=== PATIENT | female | born 1980 | race Caucasian/White ===

== ENCOUNTER 2016-06-20 20:17 | Inpatient (IN) | payer MEDICAID ==
[~2016-06-20] VITALS: Ht 152.4 cm; Wt 91.3 kg
[~2016-06-20 20:17] MED LIST: ACET500C5 PO; AZIT250T94 PO; CETI10CA PO; FERR325C PO; PREN1TAB17 PO
[2016-06-20 21:28] VITALS: BP 118/70; PULSE 83; RESP 18
--- NOTE | 2016-06-20 21:41 | TRIAGE ---
OB Triage Datetime Report Generated by CPN: 06/20/2016 21:41 Datetime: 06/20/2016 21:22 Membrane Status: Bulging Datetime: 06/20/2016 21:14 Stage of : OB Triage Labor Evaluation Monitor Mode: External Quality: Mild Pattern: Normal: <= 5 Contractions in 10 Minutes Resting Tone Mullen: Relaxed Heart Rate FHR Baseline Rate: 140 Monitor Mode: External US FHR Baseline Changes: No Baseline Change Variability: Moderate 6-25 bpm Accelerations: 15X15 Decelerations: None Category: Category I Vaginal Exam Dilatation (cms): 3.5 Effacement (%): 70 Station: -2 Exam By: Dr Wills Membrane Status: Bulging Amniotic Fluid Amount: None Vaginal Bleeding: None Cervix, Consistency: Soft Cervix, Position: Posterior Presentation 'A': Cephalic Datetime: 06/20/2016 20:15 Time of Arrival: 06/20/2016 20:12 EGA: 39.0 Arrived By: Ambulatory Arrived From: Home Chief Complaint: GRP3 W/ C/O IRREG UCS AND SROM? Movement: Present Contractions: Irregular Time Contractions Began: 06/20/2016 18:00 Contractions: q5-10 Rupture of Membranes: Unsure Vaginal Bleeding: None Vaginal Discharge: Present Recent Sexual Intercouse: Denies Abdominal Trauma: Not Applicable Patient Complaints: Cramping; Back Pain Initial Plan: EFM, SVE Datetime: 03/24/2016 23:58 EGA: 26.3 Fall Risk Assessment Fall Score: 0 Fall Risk Score Definition: No Risk: No action required
[2016-06-20] MEDS ORDERED: LACTATED RINGER'S 1,000 ML IV SCH (21:51)
[2016-06-20 21:54] LABS: ADD UMIC YES; URINE BILIRUBIN (Dip) NEGATIVE (NEGATIVE); URINE BLOOD (Dip) 1+ (NEGATIVE); URINE COLOR LT. YELLOW (YELLOW); URINE GLUCOSE (Dip) NEGATIVE (NEGATIVE); URINE KETONES (Dip) NEGATIVE (NEGATIVE); URINE LEUKOCYTE ESTERASE (Dip) NEGATIVE (NEGATIVE); URINE NITRITE (Dip) NEGATIVE (NEGATIVE); URINE TOTAL PROTEIN (Dip) TRACE (NEGATIVE); URINE UROBILINOGEN (Dip) 0.2 E.U./dL (0.1-1.0)
[2016-06-20] MEDS ORDERED: BUTORPHANOL 2 MG INJ IV PRN (22:00)
[2016-06-20] MEDS ORDERED: METHYLERGONOVINE 0.2 MG INJ IM PRN (22:00)
[2016-06-20] MEDS ORDERED: MISOPROSTOL 200 MCG TAB PR PRN (22:00)
[2016-06-20] MEDS ORDERED: OXYTOCIN 30 UNITS/LR 500 ML IV SCH ×2 (22:00)
[2016-06-20] MEDS ORDERED: CARBOPROST 250 MCG INJ IM PRN (22:00)
[2016-06-20] MEDS ORDERED: LIDOCAINE 1% (MPF) 30 ML INJ INJ PRN (22:00)
[2016-06-20] MEDS ORDERED: IBUPROFEN 600 MG TAB PO PRN (22:00)
[2016-06-20] MEDS ORDERED: AMPICILLIN 2 GM/NS (PMX) 100 ML IV ONE (22:00)
[2016-06-20] MEDS ORDERED: OXYTOCIN 30 UNITS/LR 500 ML IV PRN (22:00)
[2016-06-20 22:10] LABS: SQUAMOUS EPITHELIAL CELL,UR MODERATE; URINE RBCS 0-2 /HPF (0)
[2016-06-20] MEDS ORDERED: LACTATED RINGER'S 1,000 ML IV PRN (23:00)
[2016-06-20 23:17] LABS: BASOPHILS % 0.3 % (0.0-2.0); EOSINOPHILS # 0.1 10^3/ul (0.0-0.5); EOSINOPHILS % 1.6 % (0.0-7.0); HEMATOCRIT 30.5 % (37.0-47.0); HEMOGLOBIN 9.9 g/dl (12.0-16.0); LYMPHOCYTES # 2.2 10^3/ul (0.8-2.9); LYMPHOCYTES % 24.2 % (15.0-51.0); MEAN CORPUSCULAR HEMOGLOBIN 25.8 pg (29.0-33.0); MEAN CORPUSCULAR HGB CONC 32.4 g/dl (32.0-37.0); MEAN CORPUSCULAR VOLUME 79.8 fl (82.0-101.0); MEAN PLATELET VOLUME 10.1 fl (7.4-10.4); MONOCYTE # 0.6 10^3/ul (0.3-0.9); MONOCYTES % 6.1 % (0.0-11.0); NEUTROPHIL # 6.3 10^3/ul (1.6-7.5); NEUTROPHILS % 67.8 % (39.0-77.0); PLATELET COUNT 242 10^3/UL (140-440); RED BLOOD COUNT 3.82 10^6/ul (4.20-5.40); UNCORRECTED WBC 9.3 10^3/ul (4.8-10.8); WHITE BLOOD COUNT 9.3 10^3/ul (4.8-10.8)
[2016-06-20 23:18] LABS: CONDITION 1; LH ANALYZER COMMENTS 1
[2016-06-20 23:26] LABS: INR 0.87; PROTIME 11.8 Sec (12.2-14.2); PT RATIO 0.9
--- NOTE | 2016-06-20 23:26 | HP ---
Date/Time of Note Date/Time of Note DATE: 06/20/16 TIME: 23:23 OB - History Hx of Present Chief Complaint: contractions Estimated Due Date: Jun 27, 2016 : 4 Para: 3 Spontaneous : 0 Therapeutic : 0 Care: Good Care Obstetrical Complications: None Medical Complications: None Past Family/Social History * Past Medical, Surgical, Family and Obstetric Histories reviewed from chart. GBS Status: Positive OB Admission Exam Vital Signs Vital Signs Vital Signs Date Time Temp Pulse Resp B/P Pulse Ox O2 Delivery O2 Flow Rate FiO2 06/20/16 21:28 98.3 83 18 118/70 Room Air Physical Exam HEENT: WNL Heart: Rhythm Normal Lungs: Clear Abdomen: WNL Extremities: Normal Reflexes: Normal Cervical Dilatation: 4cm Effacement: 75% Station: -1 Heart Rate: 140's Accelerations: Accelerations Present Varibility: Moderate Contractions on Admission: 6-10 Minutes Apart Last 72 hours Lab Results CBC & BMP 06/20/16 22:45 OB Assessment/Plan Reason for admission: active labor, group B positive strep Plan: Expectant Management LEONARDA GRAHAM MD Jun 20, 2016 23:26
[2016-06-20 23:27] LABS: PARTIAL THROMBOPLASTIN TIME 27.5 Sec (25.0-35.0)
[2016-06-21] MEDS ORDERED: AMPICILLIN 1 GM/NS (PMX) 50 ML IV SCH (02:00)
[2016-06-21] MEDS ORDERED: OXYTOCIN 30 UNITS/LR 500 ML IV ONE (02:01)
--- NOTE | 2016-06-21 02:47 | LDN ---
Date/Time of Note Date/Time of Note DATE: 06/21/16 TIME: 02:45 Delivery Summary over intact perineum Placenta Delivered: Spontaneously Meconium: none Perineum intact?: Yes Anesthesia type: None Estimated blood loss: 300 Sponge & Needle done & correct: Yes All needle counts correct: Yes Any foreign bodies felt in the: No Problems: Infant Delivery Information Sex Infant Sex: male Apgars 1 Minute: 8 5 Minute: 9 Suctioning Nose & mouth suctioned at ruiz: Yes Delee suction performed: No Umbilical Cord Umbilical cord with: 3 Vessels Cord presentations: no nuchal cord Cord Blood was obtained: Yes Mother & Baby Disposition Disposition Mom & Baby to Maternity; Good: Yes LEONARDA GRAHAM MD Jun 21, 2016 02:47
[2016-06-21 05:05] VITALS: BP 116/58; PULSE 75; RESP 18
[2016-06-21] MEDS ORDERED: LACTATED RINGER'S 1,000 ML IV* SCH (05:29)
[2016-06-21] MEDS ORDERED: METHYLERGONOVINE 0.2 MG INJ IM PRN (05:30)
[2016-06-21] MEDS ORDERED: MISOPROSTOL 200 MCG TAB PR PRN (05:30)
[2016-06-21] MEDS ORDERED: WITCH HAZEL/GLYCERIN PAD PR PRN (05:30)
[2016-06-21] MEDS ORDERED: BENZOCAINE 20% 56 ML SPRAY TOP PRN (05:30)
[2016-06-21] MEDS ORDERED: CARBOPROST 250 MCG INJ IM PRN (05:30)
[2016-06-21] MEDS ORDERED: DIBUCAINE 1% 30 GM OINT PR PRN (05:30)
[2016-06-21] MEDS ORDERED: ACETAMINOPHEN 325 MG TAB PO PRN (05:30)
[2016-06-21] MEDS ORDERED: OXYTOCIN 30 UNITS/LR 500 ML IV PRN (05:30)
[2016-06-21 05:35] VITALS: BP 101/56; PULSE 70; RESP 19
[2016-06-21 08:10] VITALS: BP 113/60; PULSE 69; RESP 20
[2016-06-21] MEDS: IBUPROFEN 600 MG TAB PO SCH ×3 (12:00→17:52)
[2016-06-21] MEDS: SENNA/DOCUSATE NA (8.6MG/50MG) TAB PO SCH ×2 (12:27→20:43)
[2016-06-21 12:50] VITALS: BP 108/57; PULSE 75; RESP 18
[2016-06-21 15:35] VITALS: BP 104/60; PULSE 69; RESP 19
[2016-06-21] MEDS: ACETAMINOPHEN/CODEINE #3 TAB PO PRN (15:35)
[2016-06-21 20:30] VITALS: BP 104/64; PULSE 68; RESP 19
[2016-06-22] MEDS: IBUPROFEN 600 MG TAB PO SCH ×5 (00:51→23:42)
[2016-06-22 04:40] VITALS: BP 98/54; PULSE 65; RESP 18
[2016-06-22 07:45] LABS: BASOPHILS % 0.5 % (0.0-2.0); EOSINOPHILS # 0.3 10^3/ul (0.0-0.5); EOSINOPHILS % 3.2 % (0.0-7.0); HEMATOCRIT 28.7 % (37.0-47.0); HEMOGLOBIN 9.4 g/dl (12.0-16.0); LYMPHOCYTES # 3.4 10^3/ul (0.8-2.9); LYMPHOCYTES % 34.5 % (15.0-51.0); MEAN CORPUSCULAR HEMOGLOBIN 26.2 pg (29.0-33.0); MEAN CORPUSCULAR HGB CONC 32.7 g/dl (32.0-37.0); MEAN CORPUSCULAR VOLUME 79.9 fl (82.0-101.0); MEAN PLATELET VOLUME 10.1 fl (7.4-10.4); MONOCYTE # 0.5 10^3/ul (0.3-0.9); MONOCYTES % 5.2 % (0.0-11.0); NEUTROPHIL # 5.5 10^3/ul (1.6-7.5); NEUTROPHILS % 56.6 % (39.0-77.0); PLATELET COUNT 217 10^3/UL (140-440); RED BLOOD COUNT 3.59 10^6/ul (4.20-5.40); RED CELL DISTRIBUTION WIDTH 15.3 % (11.5-14.5); UNCORRECTED WBC 9.8 10^3/ul (4.8-10.8); WHITE BLOOD COUNT 9.8 10^3/ul (4.8-10.8)
[2016-06-22 07:49] LABS: CONDITION 1; LH ANALYZER COMMENTS 1
[2016-06-22 08:00] VITALS: BP 111/60; PULSE 77; RESP 18
[2016-06-22] MEDS: SENNA/DOCUSATE NA (8.6MG/50MG) TAB PO SCH ×2 (12:14→20:59)
--- NOTE | 2016-06-22 13:58 | PN ---
Date/Time of Note Date/Time of Note DATE: 06/22/16 TIME: 13:58 OB Subjective Subjective Subjective Post normal vaginal delivery day 1 Afebrile abdomen soft uterus firm lochia normal extremity normal PAREKR SCHNEIDER MD Jun 22, 2016 13:58
[2016-06-22] MEDS: ACETAMINOPHEN/CODEINE #3 TAB PO PRN ×2 (15:54→22:21)
[2016-06-22 16:02] VITALS: BP 114/57; PULSE 70; RESP 18
[2016-06-22 19:55] VITALS: BP 105/54; PULSE 68; RESP 18
[2016-06-22] MEDS ORDERED: LANOLIN 7 GM TUBE TOP PRN (22:30)
[2016-06-23 04:10] VITALS: BP 109/65; PULSE 60; RESP 18
[2016-06-23] MEDS: IBUPROFEN 600 MG TAB PO SCH ×2 (05:45→12:31)
[2016-06-23 08:00] VITALS: BP 109/48; PULSE 62; RESP 18
[2016-06-23] MEDS ORDERED: DIPHTH/TET/ACEL PERTUSS (ADULT) 0.5 ML VIAL IM* ONE (09:00)
[2016-06-23] MEDS: SENNA/DOCUSATE NA (8.6MG/50MG) TAB PO SCH (12:32)
--- NOTE | 2016-06-23 13:33 | PD.PPDC ---
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
--- NOTE | 2016-06-23 13:36 | DS ---
Date/Time of Note Date/Time of Note DATE: 06/23/16 TIME: 13:33 Obstetrical Discharge Record Final Diagnosis Final Diagnosis: Term delivered Vaginal Delivery Obstetrical Delivery: Spontaneous Condition on Discharge Physical Assessment Last Vitals: Vital sign a stable Afebrile abdomen soft uterus firm lochia normal extremity normal discharged home with instructions , advised to make appointment to be seen at the clinic in 2 weeks Current Medications Medications (Trade) Dose Ordered Sig/Leandra Route PRN Reason Start Time Stop Time Status Last Admin Dose Admin Lactated Ringer's 1,000 ml @ 125 mls/hr Q8H IV 06/20/16 21:51 06/21/16 05:32 DC 06/20/16 23:30 Ampicillin 100 ml @ 100 mls/hr ONCE ONCE IV 06/20/16 22:00 06/20/16 22:59 DC 06/20/16 23:31 Ampicillin (Ampicillin 1 Gm/ NS (Pmx)) 50 ml @ 100 mls/hr Q4H IV 06/21/16 02:00 06/21/16 05:32 DC Butorphanol Tartrate (Stadol) 2 mg Q2H PRN IV PAIN 06/20/16 22:00 06/21/16 05:32 DC 06/21/16 03:32 Lidocaine 30 ml 30 ml ONCE PRN INJ EPISIOTOMY/TEARING 06/20/16 22:00 06/21/16 05:32 DC Oxytocin/Lactated Ringer's 500 ml @ 125 mls/hr ONCE -MAY REPEAT X1 IV 06/20/16 22:00 06/21/16 05:32 DC Oxytocin/Lactated Ringer's 500 ml @ 125 mls/hr ONCE IV 06/20/16 22:00 06/21/16 05:32 DC Ibuprofen 600 mg 600 mg ONCE PRN PO Mild Pain (Pain Score 1-3) 06/20/16 22:00 06/21/16 05:32 DC 06/21/16 03:57 Lactated Ringer's 1,000 ml @ 2,000 mls/hr Q30M PRN IV PRE-EPIDURAL BOLUS 06/20/16 23:00 06/21/16 05:32 DC Oxytocin/Lactated Ringer's 500 ml @ 0 mls/hr ONCE PRN IV For Hemorrhage Management 06/20/16 22:00 06/21/16 05:32 DC Methylergonovine Maleate (Methergine) 0.2 mg ONCE PRN IM VAGINAL BLEEDING 06/20/16 22:00 06/21/16 05:33 DC Carboprost Tromethamine (Hemabate) 250 mcg ONCE PRN IM VAGINAL BLEEDING 06/20/16 22:00 06/21/16 05:33 DC Misoprostol 1000 mcg 1,000 mcg ONCE PRN MD VAGINAL BLEEDING 06/20/16 22:00 06/21/16 05:33 DC Oxytocin/Lactated Ringer's 500 ml @ ud STK-MED ONCE IV 06/21/16 02:01 06/21/16 02:02 DC Lactated Ringer's (Lr) 1,000 ml @ 125 mls/hr Q8H IV* 06/21/16 05:29 06/21/16 11:09 DC Ibuprofen (Motrin) 600 mg Q6 PO 06/21/16 06:00 06/23/16 12:31 Acetaminophen (Tylenol Tab) 650 mg Q4H PRN PO PAIN LEVEL 1-5 06/21/16 05:30 Acetaminophen/ Codeine Phosphate (Tylenol No.3) 1 tab Q4H PRN PO PAIN LEVEL 1-5 06/21/16 05:30 06/22/16 22:21 Senna/Docusate Sodium (Senokot-S) 1 tab BID PO 06/21/16 09:00 06/23/16 12:32 Witch Zaina/ Glycerin (Tucks Pads) 1 pad BEDSIDE MEDICATION PRN MD HEMORRHOID/EPISIOTMY PAIN 06/21/16 05:30 Benzocaine (Dermoplast [place]) 1 spray BEDSIDE MEDICATION PRN TOP HEMORRHOID/EPISIOTMY PAIN 06/21/16 05:30 Dibucaine (Nupercainal) 1 applic BEDSIDE MEDICATION PRN MD HEMORRHOID/EPISIOTMY PAIN 06/21/16 05:30 Diphtheria/ Tetanus/Acell Pertussis 0.5 ml 0.5 ml ONCE ONCE IM* 06/23/16 09:00 06/23/16 09:01 DC Oxytocin/Lactated Ringer's 500 ml @ 0 mls/hr ONCE PRN IV For Hemorrhage Management 06/21/16 05:30 Methylergonovine Maleate (Methergine) 0.2 mg ONCE PRN IM VAGINAL BLEEDING 06/21/16 05:30 Carboprost Tromethamine (Hemabate) 250 mcg ONCE PRN IM VAGINAL BLEEDING 06/21/16 05:30 Misoprostol (Cytotec) 1,000 mcg ONCE PRN MD VAGINAL BLEEDING 06/21/16 05:30 Lanolin ([id number]) 1 applic BEDSIDE PRN TOP BEDSIDE FOR BAR TO NIPPLES 06/22/16 22:30 06/22/16 22:22 Voiding: Yes Bowel Movement: Yes Breast: Soft, non-tender, Filling Calf Tenderness: No Patient Condition: Good PARKER SCHNEIDER MD Jun 23, 2016 13:36
== END 2016-06-23 17:31 | disposition home or self-care (01) | DRG 775 ==
LOC: OBT 20:17 → L-D 20:18 → OBT 21:20 → L-D 21:20 → PP1 06-21 04:48
PROVIDERS: ADMIT Obstetrics & Gynecology; ATTEND Obstetrics & Gynecology
PROC: 10E0XZZ Delivery of Products of Conception, External Approach (ICD-10-PCS; principal; 2016-06-21)
DX: O99.824 Streptococcus B carrier state complicating childbirth (principal); Z3A.39 39 weeks gestation of pregnancy
CPT/HCPCS: 81001; 81003; 85025; 85610; 85730; 86592; 86900; 86901; 90715; G0463; J0290; J2590; J7120